=== PATIENT | female | born 1975 | race Caucasian/White ===

== ENCOUNTER 2022-04-23 07:40 | Outpatient (CLI) | payer OTHER, SELFPAY ==
--- NOTE | 2022-04-23 07:45 | ECHO_ITS ---
Patient Info Name: Zayra Umana Age: 46 years : 1975 Gender: Female Ht: 62 in Wt: 135 lbs BSA: 1.65 m2 HR: 92 bpm BP: 126 / 87 mmHg Technical Quality: Fair Exam Date: 04/23/2022 8:10 AM Exam Location: [facility] Pulmonary Patient Status: Outpatient Admit Date: 04/23/2022 Staff Ordering Physician: Ame Summers PAC Linux Developer: Mackenzie العلي RDCS Attending Provider: Ame Summers Referring Physician: Melina MOREAU; Exam Type: CA echo doppler color flow Study Info Indications R07.9 - Chest pain, unspecified Complete two-dimensional, color flow and Doppler transthoracic echocardiogram is performed. Summary 1. Complete two-dimensional, color flow and Doppler transthoracic echocardiogram is performed. 2. Left ventricular systolic function is normal, estimated at 60-65%. 3. There is mildly increased left ventricular wall thickness. 4. There is trivial pericardial effusion. Left Ventricle Left ventricular chamber dimension is normal. Left ventricular systolic function is normal, estimated at 60-65%. There is mildly increased left ventricular wall thickness. Left ventricular septal wall motion is normal. The left ventricular diastolic function is indeterminate. Right Ventricle Right ventricular chamber dimension is normal. Right ventricular systolic function is normal. Left Atria Left atrial chamber dimension is normal. Right Atria Right atrial chamber dimension is normal. Atrial Septum Intact interatrial septum visualized by color flow imaging. Aortic Valve The aortic valve is trileaflet. There is no aortic valve sclerosis. There is no aortic valve stenosis. There is no aortic valve regurgitation. Pulmonic Valve The pulmonic valve is normal. There is no pulmonic valve stenosis. There is no pulmonic regurgitation. Mitral Valve The mitral valve has normal leaflets. There is no mitral valve stenosis. There is mild mitral valve regurgitation. Tricuspid Valve The tricuspid valve leaflets are normal. There is no significant tricuspid valve stenosis. There is mild tricuspid valve regurgitation. No pulmonary hypertension, estimated pulmonary arterial systolic pressure is 30 mmHg. Pericardium/Pleural There is trivial pericardial effusion. Inferior Vena Cava Normal inferior vena cava with >50% collapse upon inspiration consistent with normal right atrial pressure, 10 mmHg. Aorta The aortic root size at the sinus of Valsalva is normal. The prox ascending aorta size is normal. Left Ventricular Outflow Tract Name Value Normal LVOT 2D LVOT Diameter 2.0 cm LVOT Doppler LVOT Peak Gradient 3 mmHg LVOT Mean Gradient 2 mmHg LVOT VTI 18 cm LVOT VTI/AV VTI Ratio 0.9 LVOT Stroke Volume 58 ml LVOT CO 4.6 l/min LVOT CI 2.8 l/min/m2 Pulmonic Valve Name
== END 2022-04-23 07:41 | disposition home or self-care (01) ==
PROVIDERS: PCP Family Medicine; Visit Provider Physician Assistant Medical
DX: Q21.1 Atrial septal defect (principal); R06.02 Shortness of breath; R07.9 Chest pain, unspecified
CPT/HCPCS: 93306

== ENCOUNTER 2025-01-31 00:11 | Day surgery (SDC) | payer BC, SELFPAY ==
[2025-01-16 15:23] VITALS: BMI 26.5
--- OUTSIDE RECORDS SUMMARY | 2025-01-31 00:13 | XMS_ITS | Encounter Summary ---
Author Organization [facility] Address [address] [place] [address] Phone Care Team Providers Care News Director Name Role Phone Jose Mandujano MD Unavailable [phone] Ame Summers Primary Care Provider [phone] Encounter Details Date Type Department Care Team (Latest Contact Info) Description 04/23/2022 Orders Only [facility] Scanning, Provider Social History Tobacco Use Types Packs/Day Years Used Date Smoking Tobacco: Never Smokeless Tobacco: Never Alcohol Use Standard Drinks/Week Comments Yes 0 (1 standard drink = 0.6 oz pur e alcohol) Comments Unknown Sex and Gender Information Value Date Recorded Sex Assigned at Not on file 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 Gender Identity Not on file Sexual Orientation Not on file documented as of this encounter Plan of Treatment Not on file documented as of this encounter Procedures Procedure Name Priority Date/Time Associated Diagnosis Comments CARDIOLOGY DOCUMENT SCAN 04/23/2022 documented in this encounter Results * CARDIOLOGY DOCUMENT SCAN (04/23/2022) Anatomical Region Laterality Modality Other us Provider Scanning CV CARDIAC SERVICES PROCEDURES Final Result documented in this encounter Visit Diagnoses Not on filedocumented in this encounter Care Teams News Director Relationship Specialty Start Date End Date Ame Summers PA [address] [place] [address] PCP - General Physician Cryptologic Supervisor 04/03/22 Jose Mandujano MD Family Medicine 05/05/20 documented as of this encounter
--- OUTSIDE RECORDS SUMMARY | 2025-01-31 00:13 | XMS_ITS | Encounter Summary ---
Author Organization [facility] Address [address] [place] [address] Phone Care Team Providers Care Animal Cruelty Investigation Supervisor Name Role Phone Jose Mandujano MD Unavailable [phone] Ame Summers Primary Care Provider [phone] Encounter Details Date Type Department Care Team (Late st Contact Info) Description 01/30/2025 Telephone [facility] Cardiology [address] [facility] 8th [place] [address] [place] [address] Kvng Novak MD [address] [facility] [address] [place] [address] Social History Tobacco Use Types Packs/Day Years Used Date Smoking Tobacco: Never Smokeless Tobacco: Never Alcohol Use Standard Drinks/Week Comments Yes 0 (1 standard drink = 0.6 oz pur e alcohol) Comments Unknown Sex and Gender Information Value Date Recorded Sex Assigned at Not on file 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 Please fax to [phone]. Will also be faxing cardiac clearance to be filled out. documented in this encounter Plan of Treatment Not on file documented as of this encounter Visit Diagnoses Not on filedocumented in this encounter Care Teams Animal Cruelty Investigation Supervisor Relationship Specialty Start Date End Date Ame Summers PA [address] [place] [address] PCP - General Physician Neon Sign Servicer 04/03/22 Jose Mandujano MD Family Medicine 05/05/20 documented as of this encounter
--- OUTSIDE RECORDS SUMMARY | 2025-01-31 00:13 | XMS_ITS | Clinical Summary ---
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 Cardiology [address] [facility] 8th [place] [address] [place] [address] Kvng Novak MD from Last 3 Months Medical History Medical History Date Comments Hx Other Medical chronic dyspnea unexplained Hx Other Medical osteochondromas Hx Other Medical Anemia, Iron De ficiency Social History Tobacco Use Types Packs/Day Years Used Date Smoking Tobacco: Never Smokeless Tobacco: Never Tobacco Cessation:Counseling Given: Not Answered Alcohol Use Standard Drinks/Week Comments Yes 0 (1 standard drink = 0.6 oz pur e alcohol) Comments Unknown Sex and Gender Information Value Date Recorded Sex Assigned at Not on file 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 Gender Identity Not on file Sexual Orientation Not on file Obstetrics History Last Filed Vital Signs Vital Sign Reading Time Taken Comments Blood Pressure 129/88 07/24/2024 10:40 AM CDT Pulse 89 07/24/2024 10:40 AM CDT Temperature 36.9 C (98.4 F) 05/05/2020 11:14 AM CDT Respiratory Rate - - Oxygen Saturation 99% 07/24/2024 10:40 AM CDT Inhaled Oxygen Concentration - - Weight 63.5 kg (140 lb) 07/24/2024 10:40 AM CDT Height 157.5 cm (5' 2 ) 07/24/2024 10:40 AM CDT Body Mass Index 25.61 07/24/2024 10:40 AM CDT Plan of Treatment Health Maintenance Due Date Last Done Comments Breast Cancer Screening-Mammogram 1975 Cervical Cancer Screening 1975 Colon Cancer Screening-Colonoscopy 1975 Depression Screening 1975 Hepatitis C Screening 1975 DTaP/Tdap/Td Vaccine (1 - Tdap) 1987 Hepatitis B Screening 1994 Regular Well Visit/Exam 18-64 1994 Influenza Vaccine (Season Ended) 2025 Pneumococcal vaccine <65 Aged Out No longer eligible based on patient's age to complete this topic Insurance [facility] CIG CIGNA [facility] Care Teams Marine Equipment Test Engineer Relationship Specialty Start Date End Date Ame Summers PA [address] [place] [address] PCP - General Physician Knifer Up 04/03/22 Jose Mandujano MD Family Medicine 05/05/20
--- OUTSIDE RECORDS SUMMARY | 2025-01-31 00:13 | XMS_ITS | Encounter Summary ---
Author Organization [facility] Address [address] [place] [address] Care Team Providers Care Manager Country Name Role Phone Jose Mandujano MD Primary Care Provider [phone] Encounter Details Date Type Department Care Team (Latest Contact Info) Description 04/19/2000 Inpatient Historical HIS PATIENT IN A BED Woo Marquez MD [address] [place] [address] [place] [address] [place] [address] Normal delivery (Primary Dx) Social History Tobacco Use Types Packs/Day Years Used Date Smoking Tobacco: Never Assessed Comments Unknown Sex and Gender Information Value Date Recorded Sex Assigned at Not on file Legal Sex Female 2:51 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 [address] PCP - General Family Practice 07/25/13 documented as of this encounter
--- OUTSIDE RECORDS SUMMARY | 2025-01-31 00:13 | XMS_ITS | Encounter Summary ---
Author Organization [facility] Address [address] [place] [address] Phone Care Team Providers Care Upkeep Worker Name Role Phone Jose Mandujano MD Unavailable [phone] Ame Summers Primary Care Provider [phone] Encounter Details Date Type Department Care Team (Latest Contact Info) Description 05/01/2022 Orders Only [facility] Scanning, Provider Social History Tobacco Use Types Packs/Day Years Used Date Smoking Tobacco: Never Smokeless Tobacco: Never Alcohol Use Standard Drinks/Week Comments Yes 0 (1 standard drink = 0.6 oz pur e alcohol) Comments Unknown Sex and Gender Information Value Date Recorded Sex Assigned at Not on file 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 Gender Identity Not on file Sexual Orientation Not on file documented as of this encounter Plan of Treatment Not on file documented as of this encounter Procedures Procedure Name Priority Date/Time Associated Diagnosis Comments CARDIOLOGY DOCUMENT SCAN 05/01/2022 documented in this encounter Results * CARDIOLOGY DOCUMENT SCAN (05/01/2022) Anatomical Region Laterality Modality Other us Provider Scanning CV CARDIAC SERVICES PROCEDURES Final Result documented in this encounter Visit Diagnoses Not on filedocumented in this encounter Care Teams Upkeep Worker Relationship Specialty Start Date End Date Ame Summers PA [address] [place] [address] PCP - General Physician Loan Administrator 04/03/22 Jose Mandujano MD Family Medicine 05/05/20 documented as of this encounter
--- OUTSIDE RECORDS SUMMARY | 2025-01-31 00:13 | XMS_ITS | Clinical Summary ---
Author Organization [facility] Address [address] [place] [address] Attn: Epic Prelude ADT RODRIGO ALVAREZ [address] Care Team Providers Care Medical Staff Physician Name Role Phone Jose Mandujano MD Primary Care Provider [phone] Allergies No known active allergies Medications No known medications Active Problems Problem Noted Date Diagnosed Date S/P vaginal hysterectomy 07/2707/27/2013 Social History Tobacco Use Types Packs/Day Years Used Date Smoking Tobacco: Never Alcohol Use Standard Drinks/Week Comments Yes 0 (1 standard drink = 0.6 oz pur e alcohol) rare Comments No Sex and Gender Information Value Date Recorded Sex Assigned at Not on file Legal Sex Female 2:[address] BUILDING DECORATOR Gender Identity Not on file Sexual Orientation Not on file Last Filed Vital Signs Vital Sign Reading Time Taken Comments Blood Pressure 102/70 04/01/2021 11:03 AM CDT Pulse 68 07/28/2013 1:00 PM CDT Temperature 36.4 C (97.6 F) 07/28/2013 1:00 PM CDT Respiratory Rate 18 07/28/2013 1:00 PM CDT Oxygen Saturation 98% 07/28/2013 4:00 AM CDT Inhaled Oxygen Concentration - - Weight 60.5 kg (133 lb 6.4 oz) 04/01/2021 11:03 AM CDT Height 157.5 cm (5' 2 ) 04/01/2021 11:03 AM CDT Body Mass Index 24.4 04/01/2021 11:03 AM CDT Plan of Treatment Health Maintenance Due Date Last Done Comments DTAP/TDAP/TD VACCINES (1 - Tdap) 1995 HEPATITIS B VACCINES (1 of 3 - 19+ 3-dose series) 06/1995 BREAST CANCER SCREENING 2016 COLORECTAL SCREENING 2021 Colorectal Cancer Screening 2021 FIT-DNA Q 3 years 2021 FIT/FOBT Q 1 year 2021 Flex Sig/CT Colonography Q 5 years 2021 INFLUENZA VACCINE (#1) 2024 Insurance [facility] OPEN ACCESS O Advance Directives For more information, please contact: [phone] * Full Code (Latest Code Status on File) Date Activated Date Inactivated Comments 07/27/2013 10:18 AM 07/28/2013 8:24 PM * Full Code Date Activated Date Inactivated Comments 07/27/2013 8:50 AM 07/27/2013 10:18 AM * Full Code Date Activated Date Inactivated Comments 07/27/2013 5:58 AM 07/27/2013 8:32 AM Care Teams Medical Staff Physician Relationship Specialty Start Date End Date Jose Mandujano MD [address] [place] [address] PCP - General Family Practice 07/25/13
--- OUTSIDE RECORDS SUMMARY | 2025-01-31 00:13 | XMS_ITS | Encounter Summary ---
Author Organization [facility] Address [address] [place] [address] Care Team Providers Care Toll Line Mechanic Name Role Phone Jsoe Mandujano MD Primary Care Provider [phone] Encounter Details Date Type Department Care Team (Latest Contact Info) Description 03/18/2004 Inpatient Historical HIS PATIENT IN A BED JimmyWoo chan MD [address] [facility] [address] [place] [address] CORD ENTANGLE NEC-DELIV (Primary Dx) Social History Tobacco Use Types Packs/Day Years Used Date Smoking Tobacco: Never Assessed Comments Unknown Sex and Gender Information Value Date Recorded Sex Assigned at Not on file Legal Sex Female 2:51 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 [address] PCP - General Family Practice 07/25/13 documented as of this encounter
--- OUTSIDE RECORDS SUMMARY | 2025-01-31 00:13 | XMS_ITS | Referral Summary ---
Author Organization [facility] Address [address] [place] [address] Care Team Providers Care Sleeve Fixer Name Role Phone Jose Mandujano MD Unavailable [phone] Ame Summers Primary Care Provider Encounters Date Type Department Care Team Description 01/30/2025 Telephone [facility] Cardiology [address] [facility] Medicine 8th [place] [address] [place] [address] Kvng Novak MD from Last 3 Months Allergies No known active allergies Medications metoprolol XL (TOPROL-XL) 50 mg extended release tablet TAKE 1 TABLET(50 MG) BY MOUTH DAILY 90 tablet 3 07/26/2024 Active Active Problems Problem Noted Date Diagnosed Date 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 Social History Tobacco Use Types Packs/Day Years Used Date Smoking Tobacco: Never Smokeless Tobacco: Never Tobacco Cessation:Counseling Given: Not Answered Alcohol Use Standard Drinks/Week Comments Yes 0 (1 standard drink = 0.6 oz pur e alcohol) Comments Unknown Sex and Gender Information Value Date Recorded Sex Assigned at Not on file Legal Sex Female 1:13 AM LEGAL ADVISOR Gender Identity Not on file Sexual Orientation [...] 07/24/2024 10:40 AM CDT Plan of Treatment Not on file Insurance [facility] Care Teams Sleeve Fixer Relationship Specialty Start Date End Date Ame Summers PA [address] [place] [address] PCP - General Physician Yardage Estimator 04/03/22 Jose Mandujano MD Family Medicine 05/05/20
[2025-01-31 08:40] VITALS: BP 125/88; PULSE 97; RESP 20; TEMP 36.4; O2SAT 98; BMI 27.2
[2025-01-31] MEDS: LACTATED RINGERS 1,000 ML 150 ML IV CONT (08:44)
--- NOTE | 2025-01-31 09:20 | WPDANESEPPF ---
Anes - Initial Pre Proc Eval Procedure: Operation Date: 01/31/25 09:30 Proposed Procedures p Colonoscopy - Rod Klein MD Date/Time: 01/31/25 09:20 Surgeon: Rod Klein MD Pre Op Diagnosis: fecal abnormalities Patient Data Age: 49 Gender: F Height: 1.57 m Weight: 67.5 kg Last Vital Signs Temp 97.6 F 01/31/25 08:40 Pulse 97 01/31/25 08:40 Resp 20 01/31/25 08:40 BP 125/88 01/31/25 08:40 Pulse Ox 98 01/31/25 08:40 O2 Del Method Room Air 01/31/25 08:40 Allergies Allergy/AdvReac Type Severity Reaction Status Date / Time No Known Allergies Allergy Unknown Verified 01/31/25 08:39 Home Medications ?Medication ?Instructions ?Recorded ?Confirmed ?Type metoprolol succinate 50 mg 50 mg PO DAILY 01/25/24 01/16/25 History tablet,extended release 24 hr Patient hx anesthesia problems: none Family hx anesthesia problems: none Results Review: All pre-operative results and documents have been reviewed as part of the pre-operative evaluation. [facility] Past Medical History Medical History BMI 25.0-25.9,adult Family History Family History Father Family history of premature coronary heart disease Hypertension Mother Hypertension Family history of hypothyroidism Grandparent Cerebrovascular accident Diabetes mellitus Social History Social History Smoking status: Never smoker Alcohol intake: never Substance use: never Substance use type: does not use Do You Feel Safe in your Home?: Yes Lack of Transportation: No Lack of Food: Never True Current Housing: I Have Housing Concerned About Future Housing: No Difficulty Paying Gas/Electric Bills: No Difficulty Paying for Meds: No Currently Unemployed: No Education: Decline to Answer Difficulty w/ Childcare or Family Care: No Living arrangements: with family Spiritual care concerns: No Anes - Eval Final PreProcedure Day of Procedure 01/31/25 09:20 Patient weight: normal Heart: regular rate and rhythm Lungs: clear to auscultation Airway: Mallampati scale class II Neurological: alert and oriented Last oral intake: >/= 8 hours ASA classification: III Emergent: no Anesthetic plan: proceed Anesthesia type and monitoring: general GIVS and standard monitoring Results Review: All pre-operative results and documents have been reviewed as part of the pre-operative evaluation. Informed Consent: The patient's anesthetic plan and its attendant risks and benefits were discussed with the patient/family/POA. Questions were solicited and answers provided to the satisfaction of the patient/family/POA.
--- NOTE | 2025-01-31 09:28 | PM.IMHP ---
H&P: HPI History of Present Illness Date/Time: 01/31/25 09:28 Chief Complaint: Screening colonoscopy Narrative: This is the patient's first colonoscopy. a Cologuard positive test was found.There are no GI symptoms and there is no family history of colorectal cancer. Review of Systems Review of Systems: All systems reviewed & are unremarkable except as noted in HPI and below PMFSH Past Medical History Medical History BMI 25.0-25.9,adult Family History Family History Father Family history of premature coronary heart disease Hypertension Mother Hypertension Family history of hypothyroidism Grandparent Cerebrovascular accident Diabetes mellitus Social History Social History Smoking status: Never smoker Alcohol intake: never Substance use: never Substance use type: does not use Do You Feel Safe in your Home?: Yes Lack of Transportation: No Lack of Food: Never True Current Housing: I Have Housing Concerned About Future Housing: No Difficulty Paying Gas/Electric Bills: No Difficulty Paying for Meds: No Currently Unemployed: No Education: Decline to Answer Difficulty w/ Childcare or Family Care: No Living arrangements: with family Spiritual care concerns: No Meds Home Medications and Allergies Home Medications ?Medication ?Instructions ?Recorded ?Confirmed ?Type metoprolol succinate 50 mg 50 mg PO DAILY 01/25/24 01/16/25 History tablet,extended release 24 hr Allergies Allergy/AdvReac Type Severity Reaction Status Date / Time No Known Allergies Allergy Unknown Verified 01/31/25 08:39 Vital Signs Vital Signs - 24 hr 01/31/25 08:40 Temperature 97.6 F Pulse Rate 97 Respiratory Rate 20 Blood Pressure 125/88 Pulse Oximetry 98 Oxygen Delivery Room Air Exam Const: General: cooperative and healthy appearing Resp: Effort & Inspection: normal respiratory effort and able to speak in complete sentences Auscultation: clear to auscultation bilaterally Cardio: Rate: regular rate Rhythm: regular rhythm GI: Inspection: normal to inspection GI Palp: No No hepatosplenomegaly present Auscultation: normal bowel sounds Rectal Exam: deferred Skin: General skin exam: normal color Psych: Appearance: grossly normal Mental Status: mental status grossly normal Assessment and Plan Assessment and plan (1) Positive colorectal cancer screening using Cologuard test: Code(s): R19.5 - Other fecal abnormalities Status: Acute Assessment and Plan: The patient is deemed a good candidate for the procedure. Consent signed. Will proceed.
[2025-01-31 09:57] VITALS: BP 121/79; PULSE 83; RESP 21; O2SAT 97
[2025-01-31 10:07] VITALS: BP 111/81; PULSE 78; RESP 19; O2SAT 99
--- NOTE | 2025-01-31 10:11 | SUR.OPER ---
Addendum entered by Heather Good RN 01/31/25 10:15: 8 mL Normal saline injected to cecal polyp site by Maddie Ji under direct supervision of MD Klein . Lot: [id number], Exp: 07/03/2027 Original Note: Normal saline injected to cecal polyp site. Lot: [id number], Exp: 07/03/2027
[2025-01-31 10:17] VITALS: BP 117/83; PULSE 69; RESP 20; O2SAT 99
--- NOTE | 2025-01-31 10:22 | SUR.PHASEII ---
patient stated to have stomach pain . Addressed with patient i could get the dr if she has concerns. Patient stated no thats fine . Patient was educated to contact the physcians number if pain doesnt subside or gets worse.
== END 2025-01-31 10:26 | disposition home or self-care (01) ==
PROVIDERS: PCP Family Medicine; Referring Provider Nurse Practitioner Family; Visit Provider Internal Medicine Gastroenterology
PROC: 0DJD8ZZ Inspection of Lower Intestinal Tract, Via Natural or Artificial Opening Endoscopic (ICD-10-PCS; CPT 45378; principal; 2025-01-31 09:30)
DX: D12.0 Benign neoplasm of cecum (principal); K64.8 Other hemorrhoids; Z82.49 Family history of ischemic heart disease and other diseases of the circulatory system
CPT/HCPCS: 45390; 88305; J2704; J7120